=== PATIENT | female | born 1990 | race Caucasian/White ===

== ENCOUNTER 2019-04-06 11:53 | Outpatient (CLI) | payer OTHER ==
[~2019-04-06] VITALS: Ht 162.6 cm; Wt 84.1 kg
[2019-04-06 12:03] VITALS: BP 121/72
== END 2019-04-06 14:08 | disposition home or self-care (01) ==
LOC: LDOP 11:53
PROVIDERS: ATTEND Student in an Organized Health Care Education/Training Program
DX: O36.8130 Decreased fetal movements, third trimester, not applicable or unspecified (principal); Z3A.28 28 weeks gestation of pregnancy
CPT/HCPCS: 59025; 76815; 99201; G0463

== ENCOUNTER 2019-06-09 06:09 | Inpatient (IN) | payer OTHER ==
[~2019-06-09] VITALS: Ht 160 cm; Wt 92.3 kg
[2019-06-09] MEDS ORDERED: OXYTOCIN 30U/ 0.9% NaCL 500ML 500 ML IV PRN (06:40)
[2019-06-09] MEDS ORDERED: OXYTOCIN 30U/ 0.9% NaCL 500ML 500 ML IV ONE (06:40)
[2019-06-09] MEDS ORDERED: D5%-LACTATED RINGERS 1,000 ML IV SCH (06:40)
[2019-06-09 06:45] VITALS: BP 123/77
[2019-06-09] MEDS ORDERED: FENTANYL/BUPIV./NS/PF 250 ML EPIDCONT SCH ×2 (06:58→08:56)
[2019-06-09] MEDS ORDERED: CALCIUM CARBONATE 500 MG TAB.CHEW PO PRN (07:00)
[2019-06-09] MEDS ORDERED: PLEASE ENTER HEIGHT AND WEIGHT MC SCH (07:00)
[2019-06-09] MEDS ORDERED: ONDANSETRON 2MG/ML, 2ML IVPush PRN (07:00)
[2019-06-09] MEDS ORDERED: FENTANYL PF 100 MCG/2ML IVPush PRN (07:00)
[2019-06-09] MEDS ORDERED: TERBUTALINE 1 MG/ML, 1ML IVPush PRN (07:00)
[2019-06-09] MEDS ORDERED: SODIUM CITRATE/CITRIC ACID 30 ML UDC PO PRN (07:00)
[2019-06-09] MEDS ORDERED: METOCLOPRAMIDE 5 MG/ML, 2ML IVPush PRN (07:00)
[2019-06-09] MEDS ORDERED: TERBUTALINE 1 MG/ML, 1ML SQ PRN (07:00)
[2019-06-09] MEDS ORDERED: FENTANYL PF 100 MCG/2ML IV PRN (07:00)
[2019-06-09] MEDS ORDERED: METHYLERGONOVINE 0.2 MG/ML IM ONE (07:00)
[2019-06-09] MEDS ORDERED: FENTANYL PF 100 MCG/2ML ONE (07:04)
[2019-06-09 07:08] LABS: BASOPHILS # (AUTO) 0.12 x10^3/uL (0-0.1); BASOPHILS % (AUTO) 1 % (0-1); EOSINOPHILS # (AUTO) 0.11 x10^3/uL (0-0.4); EOSINOPHILS % (AUTO) 1 % (1-7); LYMPHOCYTES # (AUTO) 1.92 x10^3/uL (1-3.4); LYMPHOCYTES % (AUTO) 13 % (22-44); MD NO; MEAN CORPUSCULAR HEMOGLOBIN 32.1 pg (27.0-34.8); MEAN CORPUSCULAR HGB CONC 33.9 g/dL (32.4-35.8); MEAN CORPUSCULAR VOLUME 94.7 fL (80-100); MEAN PLATELET VOLUME 9.3 fL (7.4-10.4); MONOCYTES % (AUTO) 6 % (2-9); NEUTROPHILS # (AUTO) 11.35 x10^3/uL (1.8-6.8); NEUTROPHILS % (AUTO) 79 % (42-75); PLATELET COUNT 169 x10^3/uL (130-400); RED BLOOD COUNT 4.27 x10^6/uL (3.82-5.3); RED CELL DISTRIBUTION WIDTH 13.3 % (9.6-15.2)
[2019-06-09] MEDS ORDERED: FENTANYL PF 500 MCG, BUPIVACAINE/PF 0.5%, 30ML 62.5 ML in SODIUM CHLORIDE 0.9% 177.5 ML EPIDCONT SCH (07:30)
[2019-06-09] MEDS: LACTATED RINGERS 1,000 ML IV SCH ×5 (07:31→21:11)
[2019-06-09] MEDS ORDERED: LACTATED RINGERS 1,000 ML IV SCH (08:56)
[2019-06-09] MEDS ORDERED: LACTATED RINGERS 1,000 ML IVBOLUS PRN (09:00)
[2019-06-09] MEDS ORDERED: EPHEDRINE 50 MG/ML, 1ML IVPush PRN (09:00)
[2019-06-09] MEDS ORDERED: NALOXONE 0.4 MG/ML, 1ML IVPush PRN (09:00)
[2019-06-09] MEDS ORDERED: ACETAMINOPHEN 500 MG TABLET ONE (18:48)
[2019-06-09] MEDS ORDERED: ACETAMINOPHEN 500 MG TABLET PO ONE (19:00)
[2019-06-09] MEDS ORDERED: AMPICILLIN 2 GM in SODIUM CHLORIDE 0.9% 100 ML IV ONE (19:00)
[2019-06-09] MEDS ORDERED: GENTAMICIN PER PHARMACY MC ONE (19:15)
[2019-06-09] MEDS ORDERED: SODIUM CITRATE/CITRIC ACID 30 ML UDC ONE (19:26)
[2019-06-09] MEDS ORDERED: METOCLOPRAMIDE 5 MG/ML, 2ML ONE (19:26)
[2019-06-09] MEDS ORDERED: GENTAMICIN 180 MG in SODIUM CHLORIDE 0.9% 100 ML IV ONE (19:30)
[2019-06-09] MEDS ORDERED: METOCLOPRAMIDE 5 MG/ML, 2ML IV ONE (20:00)
[2019-06-09] MEDS ORDERED: CEFAZOLIN PMX 1GM/50ML 50 ML IVPB ONE (20:00)
[2019-06-09] MEDS ORDERED: ONDANSETRON 2MG/ML, 2ML IVPush ONE (20:00)
[2019-06-09] MEDS ORDERED: LACTATED RINGERS 1,000 ML IVBOLUS ONE (20:00)
[2019-06-09] MEDS ORDERED: AZITHROMYCIN 500 MG in SODIUM CHLORIDE 0.9% 250 ML IV ONE (20:00)
[2019-06-09] MEDS: KETOROLAC 30 MG/1 ML IV SCH (20:30)
[2019-06-09] MEDS ORDERED: MISOPROSTOL 200 MCG TABLET PR PRN (21:00)
[2019-06-09] MEDS ORDERED: BISACODYL 10 MG SUPP PR PRN (21:00)
[2019-06-09] MEDS ORDERED: IBUPROFEN 600 MG TABLET PO PRN (21:00)
[2019-06-09] MEDS ORDERED: SIMETHICONE 80 MG CHEW TAB PO PRN (21:00)
[2019-06-09] MEDS ORDERED: GLYCERIN ADULT SUPP PR PRN (21:00)
[2019-06-09] MEDS ORDERED: CARBOPROST TROMETHAMINE 250 MCG/ML, 1ML IM PRN (21:00)
[2019-06-09] MEDS ORDERED: METHYLERGONOVINE 0.2 MG/ML IM PRN (21:00)
[2019-06-09] MEDS ORDERED: ACETAMINOPHEN 325 MG TABLET PO PRN (21:00)
[2019-06-09] MEDS ORDERED: IBUPROFEN 800 MG TABLET PO PRN (21:00)
[2019-06-09] MEDS: OXYTOCIN 30U/ 0.9% NaCL 500ML 500 ML IV SCH ×2 (21:14→22:43)
[2019-06-09] MEDS ORDERED: OXYcodone 5 MG/5 ML ORAL.SOL UDC ONE (21:21)
[2019-06-09] MEDS ORDERED: MORPHINE SULFATE 4 MG/ML, 1ML ONE (21:40)
[2019-06-09] MEDS ORDERED: OXYTOCIN 30U/ 0.9% NaCL 500ML 500 ML ONE (22:40)
[2019-06-09 23:00] VITALS: BP 111/74
[2019-06-10] VITALS (7 sets, daily range): BP systolic 92–121; BP diastolic 56–78
[2019-06-10] MEDS: OXYcodone/APAP 5/325MG TABLET PO PRN ×2 (01:52→06:25)
[2019-06-10] MEDS: KETOROLAC 30 MG/1 ML IV SCH ×4 (03:20→21:58)
[2019-06-10] MEDS: LACTATED RINGERS 1,000 ML IV SCH ×5 (05:54→20:52)
[2019-06-10 06:11] LABS: BASOPHILS # (AUTO) 0.04 x10^3/uL (0-0.1); BASOPHILS % (AUTO) 0 % (0-1); EOSINOPHILS # (AUTO) 0.03 x10^3/uL (0-0.4); EOSINOPHILS % (AUTO) 0 % (1-7); LYMPHOCYTES # (AUTO) 1.63 x10^3/uL (1-3.4); LYMPHOCYTES % (AUTO) 11 % (22-44); MD NO; MEAN CORPUSCULAR HEMOGLOBIN 32.3 pg (27.0-34.8); MEAN CORPUSCULAR HGB CONC 33.8 g/dL (32.4-35.8); MEAN CORPUSCULAR VOLUME 95.7 fL (80-100); MEAN PLATELET VOLUME 9.5 fL (7.4-10.4); MONOCYTES # (AUTO) 0.66 x10^3/uL (0.2-0.8); MONOCYTES % (AUTO) 4 % (2-9); NEUTROPHILS # (AUTO) 12.63 x10^3/uL (1.8-6.8); NEUTROPHILS % (AUTO) 84 % (42-75); PLATELET COUNT 143 x10^3/uL (130-400); RED CELL DISTRIBUTION WIDTH 13.2 % (9.6-15.2)
[2019-06-10] MEDS: PRENATAL VIT/IRON/FA 1 EACH TABLET PO SCH (09:24)
[2019-06-10] MEDS: DOCUSATE 100 MG CAPSULE PO PRN ×2 (09:24→20:22)
[2019-06-10] MEDS: OXYcodone IR 5MG TABLET PO PRN ×3 (11:33→20:22)
[2019-06-10] MEDS ORDERED: SODIUM CHLORIDE 0.9%, 500ML IVBOLUS ONE (13:00)
[2019-06-10] MEDS: OXYTOCIN 30U/ 0.9% NaCL 500ML 500 ML IV SCH (16:52)
[2019-06-10 18:44] LABS: BASOPHILS # (AUTO) 0.02 x10^3/uL (0-0.1); BASOPHILS % (AUTO) 0 % (0-1); EOSINOPHILS # (AUTO) 0.12 x10^3/uL (0-0.4); EOSINOPHILS % (AUTO) 1 % (1-7); LYMPHOCYTES # (AUTO) 1.57 x10^3/uL (1-3.4); LYMPHOCYTES % (AUTO) 11 % (22-44); MD NO; MEAN CORPUSCULAR HEMOGLOBIN 32.8 pg (27.0-34.8); MEAN CORPUSCULAR HGB CONC 33.8 g/dL (32.4-35.8); MEAN CORPUSCULAR VOLUME 96.9 fL (80-100); MEAN PLATELET VOLUME 9.3 fL (7.4-10.4); MONOCYTES # (AUTO) 0.68 x10^3/uL (0.2-0.8); MONOCYTES % (AUTO) 5 % (2-9); NEUTROPHILS # (AUTO) 12.24 x10^3/uL (1.8-6.8); NEUTROPHILS % (AUTO) 84 % (42-75); PLATELET COUNT 150 x10^3/uL (130-400); RED BLOOD COUNT 3.18 x10^6/uL (3.82-5.3); RED CELL DISTRIBUTION WIDTH 13.3 % (9.6-15.2)
[2019-06-10] MEDS: AMPICILLIN 2 GM in SODIUM CHLORIDE 0.9% 100 ML IV SCH (19:31)
[2019-06-10] MEDS: CLINDAMYCIN PMX 900MG/50ML 50 ML IV SCH (20:22)
[2019-06-10] MEDS: GENTAMICIN 340 MG in SODIUM CHLORIDE 0.9% 100 ML IV SCH (21:58)
[2019-06-11] VITALS: BP 111/75
[2019-06-11] MEDS: OXYcodone IR 5MG TABLET PO PRN (00:58)
[2019-06-11] MEDS: AMPICILLIN 2 GM in SODIUM CHLORIDE 0.9% 100 ML IV SCH ×4 (01:40→19:30)
[2019-06-11] MEDS: LACTATED RINGERS 1,000 ML IV SCH ×6 (02:52→22:52)
[2019-06-11] MEDS: OXYTOCIN 30U/ 0.9% NaCL 500ML 500 ML IV SCH ×3 (02:52→22:52)
[2019-06-11] MEDS: CLINDAMYCIN PMX 900MG/50ML 50 ML IV SCH ×3 (03:59→20:39)
[2019-06-11] MEDS: KETOROLAC 30 MG/1 ML IV SCH ×3 (03:59→16:37)
[2019-06-11 04:00] VITALS: BP 111/75
[2019-06-11 05:48] LABS: CREATININE 0.82 mg/dL (0.55-1.02)
[2019-06-11 07:00] VITALS: BP 108/69
[2019-06-11] MEDS: PRENATAL VIT/IRON/FA 1 EACH TABLET PO SCH (07:35)
[2019-06-11] MEDS: FERROUS SULFATE 325 MG TABLET PO SCH ×2 (07:35→16:37)
[2019-06-11] MEDS: DOCUSATE 100 MG CAPSULE PO PRN ×2 (07:35→22:12)
[2019-06-11] MEDS: OXYcodone/APAP 5/325MG TABLET PO PRN ×2 (07:59→22:12)
[2019-06-11 12:00] VITALS: BP 105/72
[2019-06-11 16:24] VITALS: BP 116/76
[2019-06-11 20:45] VITALS: BP 125/74
[2019-06-11] MEDS: GENTAMICIN 340 MG in SODIUM CHLORIDE 0.9% 100 ML IV SCH (22:12)
[2019-06-12] MEDS: IBUPROFEN 600 MG TABLET PO PRN ×4 (01:21→21:40)
[2019-06-12] MEDS: AMPICILLIN 2 GM in SODIUM CHLORIDE 0.9% 100 ML IV SCH (01:21)
[2019-06-12 01:25] VITALS: BP 114/75
[2019-06-12 04:13] VITALS: BP 107/72
[2019-06-12] MEDS: CLINDAMYCIN PMX 900MG/50ML 50 ML IV SCH ×2 (04:14→04:47)
[2019-06-12] MEDS: LACTATED RINGERS 1,000 ML IV SCH ×6 (04:52→22:52)
[2019-06-12 08:10] VITALS: BP 111/77
[2019-06-12] MEDS: DOCUSATE 100 MG CAPSULE PO PRN ×2 (08:23→21:40)
[2019-06-12] MEDS: PRENATAL VIT/IRON/FA 1 EACH TABLET PO SCH (08:23)
[2019-06-12] MEDS: FERROUS SULFATE 325 MG TABLET PO SCH ×2 (08:23→18:25)
[2019-06-12] MEDS: OXYcodone/APAP 5/325MG TABLET PO PRN ×2 (08:24→15:13)
[2019-06-12] MEDS: OXYTOCIN 30U/ 0.9% NaCL 500ML 500 ML IV SCH ×2 (08:30→18:25)
[2019-06-12] MEDS ORDERED: POLYETHYLENE GLYCOL 17 GM PACKET PO ONE (09:00)
[2019-06-12 19:30] VITALS: BP 112/76
[2019-06-12] MEDS: OXYcodone IR 5MG TABLET PO PRN (21:41)
[2019-06-13] MEDS: LACTATED RINGERS 1,000 ML IV SCH ×2 (04:52→05:49)
[2019-06-13] MEDS: OXYTOCIN 30U/ 0.9% NaCL 500ML 500 ML IV SCH ×2 (04:52→05:49)
[2019-06-13] MEDS: IBUPROFEN 600 MG TABLET PO PRN ×2 (06:45→12:52)
[2019-06-13] MEDS: OXYcodone IR 5MG TABLET PO PRN ×2 (06:47→12:52)
[2019-06-13] MEDS ORDERED: IBUP-1222 PO (07:45)
[2019-06-13] MEDS ORDERED: OXYC-302 PO (07:45)
[2019-06-13 08:10] VITALS: BP 119/83
[2019-06-13] MEDS: FERROUS SULFATE 325 MG TABLET PO SCH (08:22)
[2019-06-13] MEDS: DOCUSATE 100 MG CAPSULE PO PRN (08:22)
[2019-06-13] MEDS: PRENATAL VIT/IRON/FA 1 EACH TABLET PO SCH (08:23)
== END 2019-06-13 13:59 | disposition home or self-care (01) | DRG 786 ==
LOC: LDOP 06:09 → LDIP 06:44 → 2NW 23:02
PROVIDERS: ADMIT Student in an Organized Health Care Education/Training Program; ATTEND Student in an Organized Health Care Education/Training Program
PROC: 10D00Z1 Extraction of Products of Conception, Low, Open Approach (ICD-10-PCS; principal; 2019-06-09)
DX: O36.63X0 Maternal care for excessive fetal growth, third trimester, not applicable or unspecified (principal); O41.1230 Chorioamnionitis, third trimester, not applicable or unspecified; D62 Acute posthemorrhagic anemia; O32.4XX0 Maternal care for high head at term, not applicable or unspecified; O62.1 Secondary uterine inertia; O76 Abnormality in fetal heart rate and rhythm complicating labor and delivery; Z37.0 Single live birth; Z3A.37 37 weeks gestation of pregnancy; Z80.3 Family history of malignant neoplasm of breast; O90.81 Anemia of the puerperium
CPT/HCPCS: 36415; J3490; S0020; 82565; 82803; 83605; 85025; 86850; 86900; G0378; J0290; J0456; J0690; J1885; J3010; J1580; J2210; J2590; J2765; J7040; J7050; J7120